=== PATIENT | male | born 1990 | race African-American/Black ===

== ENCOUNTER 2016-12-15 02:26 | Inpatient (IN) | payer SELFPAY ==
[2016-12-15 02:37] VITALS: BMI 28.8
[2016-12-15] MEDS ORDERED: NS 1000 ML 1,000 ML ONE ×2 (02:49→05:00)
--- NOTE | 2016-12-15 02:49 | DR.GENAD ---
HPI - HPI Comment HPI Comment: PATIENT WORKING ENVIROMENT HOT. TONIGHT, HE STARTED TO FEEL CRAMPS ALL OVER WITH HANDS AND FEET BRANDON AND SHOWING TETANI - Complaint/Symptoms Chief Complaint Doctors Comments: CRAMPS LEGS AND ARMS. Chief Complaint:: PT STATES THAT HE "GOT BAD CRAMPS IN BOTH ARMS AND COULDN'T MOVE HANDS" C/O CRAMPS IN LEGS AND PAIN IN ARMS AND LEGS - Nurses notes reviewed Nurses Notes Review: Yes - Source History Provided: Patient - Mode of Arrival Mode of Arrival: Ambulatory - Timing Onset of Chief Complaint: 12/15/16 Came on: Suddenly - Duration Duration: Constant Duration: Hours - Severity Severity: Severe PMH - PMH Past Medical History: No Past Medical History: Sleep Apnea Past Surgical History: Yes Surgical History: Ortho Surgery - Family History History of Family Medical Conditions: Yes Family Medical History: Cancer, Hypertension - Social History Alcohol Use: Rarely Do you use any recreational Drugs:: No - infectious screening Have you traveled outside the country in the last 6 months?: No ROS - Review of Systems Constitutional: Weakness, Fatigue. negative: Chills, Fever Eyes: No Symptoms Reported. negative: Eye Pain, Discharge ENTM: No Symptoms Reported. negative: Ear Discharge, Nose Discharge, Nose Congestion, Throat Pain Respiratoy: No Symptoms Reported, Short of Breath. negative: Non-Productive Cough, Wheezing, Hemoptysis Cardiovascular: Chest Pain. negative: Edema, Palpitations Gastrointestinal/Abdominal: Abdominal Pain, Nausea. negative: Diarrhea, Vomiting Genitourinary: No Symptoms Reported. negative: Dysuria, Frequency, Hematuria Neurological: Headache, Weakness, Dizziness Musculoskeletal: Joint Pain, Muscle Pain Integumentary: No Symptoms Reported, Dryness Hematologic/Lymphatic: No Symptoms Reported Endocrine: No Symptoms Reported All Other Systems: Reviewed and Negative PE - Vital Signs Vitals: Temperature 98.7 F Pulse Rate 86 Respiratory Rate 16 Blood Pressure 119/76 O2 Sat by Pulse Oximetry 98 - General Limitations: No Limitations General Appearance: Alert - Head Head Exam: Normal Inspection - Eyes Eye exam: Normal Appearance - ENT ENT Exam: Normal External Ear Exam External Ear Exam: Normal External Inspection TM/Canal Exam: Bilateral Normal Mouth Exam: Normal Inspection Throat Exam: Normal Inspection - Neck Neck Exam: Normal Inspection, Trachea Midline - Chest Chest Inspection: Symmetric Chest Wall Rise - Respiratory Respiratory Exam: Normal Lung Sounds Bilat Respiratory Exam: Bilateral Clear to Auscultation - Cardiovascular Cardiovascular Exam: Regular Rate, Normal Rhythm, Normal Heart Sounds - Abdominal Exam Abdominal Exam: Normal Bowel Sounds, Soft. negative: Tenderness - Extremities Extremities Exam: Normal Inspection - Back Back Exam: Normal Inspection - Neurologic Neurological Exam: Alert, Oriented X3 - Psychiatric Psychiatric Exam: Anxious - Skin Skin Exam: Normal Color MDM - Differential Diagnosis Differential Diagnosis: DEHYDRATION, HYPOKALEMIA, Course - Treatment Treatment: SEE ORDERS. - Consultation Consultation Comments: DISCUSS PATIENT WITH DR. NUGENT. HE WILL ADMIT PATIENT. - Education/Counseling Education/Counseling: Patient, Education Educated On: Treatment, Diagnosis, Needs for Follow Up ROR - Labs Reviewed Laboratory Results Reviewed?: Yes Result Diagrams: 12/15/16 02:56 12/15/16 02:56 Laboratory: WBC 9.1 X10^3/uL (3.6-10.0) 12/15/16 02:56 RBC 6.36 X10^6/uL (4.7-6.0) H 12/15/16 02:56 Hgb 20.1 g/dL (13.5-18.0) H* 12/15/16 02:56 Hct 57.8 % (42.0-54.0) H* 12/15/16 02:56 MCV 90.9 fL (80.0-100.0) 12/15/16 02:56 MCH 31.5 pg (27.0-34.0) 12/15/16 02:56 MCHC 34.7 g/dL (33.0-35.0) 12/15/16 02:56 RDW 13.9 % (11.6-16.5) 12/15/16 02:56 Plt Count 228 X10^3/uL (150.0-450.0) 12/15/16 02:56 MPV 8.3 fL (7.4-11.0) 12/15/16 02:56 Neut % 78.4 % (42.0-75.0) H 12/15/16 02:56 Lymph % 12.0 % (21.0-51.0) L 12/15/16 02:56 [place] % 8.8 % (0.0-13.0) 12/15/16 02:56 Eos % 0.2 % (0.9-2.9) L 12/15/16 02:56 Baso % 0.6 % (0.2-1.0) 12/15/16 02:56 Neut # 7.1 x10^3/uL (2.2-4.8) H 12/15/16 02:56 Lymph # 1.1 X10^3/uL (1.3-2.9) L 12/15/16 02:56 [place] # 0.8 x10^3/uL (0.3-0.8) 12/15/16 02:56 Eos # 0.0 x10^3/uL (0.0-0.2) 12/15/16 02:56 Baso # 0.1 X10^3/uL (0.0-0.1) 12/15/16 02:56 Absolute Nucleated RBC 0.0 /100WBC 12/15/16 02:56 Sodium 137 mmol/L (136-145) 12/15/16 02:56 Corrected Sodium 138 mmol/L (136-145) 12/15/16 02:56 Potassium 4.1 mmol/L (3.5-5.1) 12/15/16 02:56 Chloride 95 mmol/L (98-107) L 12/15/16 02:56 Carbon Dioxide 30.4 mmol/L (21-32) 12/15/16 02:56 BUN 20 mg/dL (7-18) H 12/15/16 02:56 Creatinine 3.45 mg/dL (0.70-1.30) H 12/15/16 02:56 Est GFR (MDRD) Af Amer 28 (>60) L 12/15/16 02:56 Est GFR (MDRD) Non-Af 23 (>60) L 12/15/16 02:56 Glucose 136 mg/dL (65-99) H 12/15/16 02:56 Calcium 10.5 mg/dL (8.5-10.1) H 12/15/16 02:56 Corrected Calcium TNP 12/15/16 02:56 Total Bilirubin 0.70 mg/dL (0.2-1.0) 12/15/16 02:56 AST 31 Units/L (15-37) 12/15/16 02:56 ALT 76 Units/L (12-78) 12/15/16 02:56 Alkaline Phosphatase 108 Units/L (46-116) 12/15/16 02:56 Creatine Kinase 237 Units/L (39-308) 12/15/16 02:56 Total Protein 10.3 g/dL (6.4-8.2) H 12/15/16 02:56 Albumin 5.6 g/dL (3.4-5.0) H 12/15/16 02:56 Globulin 4.7 g/dL (2.5-4.5) H 12/15/16 02:56 Albumin/Globulin Ratio 1.2 Ratio (1.1-2.1) 12/15/16 02:56 - Diagnosis Discharge Problem: Renal insufficiency, Dehydration, Myalgia, Generalized pain, Polycythemia - Discharge Plan Disposition: ADMITTED INPATIENT Condition: Stable - Follow ups/Referrals Follow ups/Referrals: NFD,None [Primary Care Provider] - 3 days - Instructions
[2016-12-15] MEDS ORDERED: TORADOL 30 MG VIAL IVP ONE (02:50)
[2016-12-15] MEDS ORDERED: NS 1000 ML 1,000 ML IV ONE ×2 (02:50→05:00)
[2016-12-15] MEDS ORDERED: ATIVAN INJ 2 MG VIAL IVP ONE (02:52)
[2016-12-15] MEDS ORDERED: ATIVAN INJ 2 MG VIAL ONE (03:01)
[2016-12-15] MEDS ORDERED: TORADOL 30 MG VIAL ONE (03:01)
[2016-12-15 03:08] LABS: BASOPHILS # (AUTO) 0.1 X10^3/uL (0.0-0.1); BASOPHILS % (AUTO) 0.6 % (0.2-1.0); EOSINOPHILS % (AUTO) 0.2 % (0.9-2.9); LYMPHOCYTES # (AUTO) 1.1 X10^3/uL (1.3-2.9); MEAN CORPUSCULAR HEMOGLOBIN 31.5 pg (27.0-34.0); MEAN CORPUSCULAR HGB CONC 34.7 g/dL (33.0-35.0); MEAN CORPUSCULAR VOLUME 90.9 fL (80.0-100.0); MEAN PLATELET VOLUME 8.3 fL (7.4-11.0); MONOCYTES # (AUTO) 0.8 x10^3/uL (0.3-0.8); MONOCYTES % (AUTO) 8.8 % (0.0-13.0); NEUTROPHILS # (AUTO) 7.1 x10^3/uL (2.2-4.8); NEUTROPHILS % (AUTO) 78.4 % (42.0-75.0); PLATELET COUNT 228 X10^3/uL (150.0-450.0); RED BLOOD COUNT 6.36 X10^6/uL (4.7-6.0); RED CELL DISTRIBUTION WIDTH 13.9 % (11.6-16.5); WHITE BLOOD COUNT 9.1 X10^3/uL (3.6-10.0)
[2016-12-15 03:12] LABS: HEMATOCRIT 57.8 % (42.0-54.0)
[2016-12-15 03:13] LABS: HEMOGLOBIN 20.1 g/dL (13.5-18.0)
[2016-12-15 03:17] LABS: ALANINE AMINOTRANSFERASE 76 Units/L (12-78); ALBUMIN 5.6 g/dL (3.4-5.0); ALKALINE PHOSPHATASE 108 Units/L (46-116); ASPARTATE AMINO TRANSFERASE 31 Units/L (15-37); BLOOD UREA NITROGEN 20 mg/dL (7-18); CALCIUM 10.5 mg/dL (8.5-10.1); CARBON DIOXIDE 30.4 mmol/L (21-32); CHLORIDE 95 mmol/L (98-107); COR NA(FOR HYPERGLY) 138 mmol/L (136-145); CREATINE KINASE 237 Units/L (39-308); CREATININE 3.45 mg/dL (0.70-1.30); SODIUM 137 mmol/L (136-145); TOTAL PROTEIN 10.3 g/dL (6.4-8.2); eGFR BLACK RACES 28 (>60); eGFR NON BLACK RACES 23 (>60)
[2016-12-15] MEDS ORDERED: MORPHINE SULFATE INJ 4 MG IVP PRN (06:41)
[2016-12-15] MEDS ORDERED: ZOFRAN INJ 4 MG VIAL IVP PRN (06:41)
[2016-12-15] MEDS ORDERED: ATIVAN INJ 2 MG VIAL IVP PRN (06:42)
[2016-12-15 07:04] LABS: BILIRUBIN,URINE 1+ (NEGATIVE); BLOOD/HEMOGLOBIN,URINE 3+ (NEGATIVE); GLUCOSE, URINE NEGATIVE (NEGATIVE); KETONES,URINE 1+ (NEGATIVE); LEUKOCYTE ESTERASE ,URINE 1+ (NEGATIVE); NITRITES,URINE NEGATIVE (NEGATIVE); PROTEIN,URINE 3+ (NEGATIVE); UROBILINOGEN,URINE 2+ (NORMAL)
[2016-12-15 07:15] LABS: APPEARANCE,URINE HAZY (CLEAR); BACTERIA,URINE TRACE /HPF (NEGATIVE); COLOR,URINE AMBER (YELLOW); HYALINE CASTS, URINE NUMEROUS /LPF (NEGATIVE); RBC,URINE 15-20 /HPF (NEGATIVE); SQUAMOUS EPITHELIAL CELL,UR RARE /HPF (NEGATIVE)
[2016-12-15] MEDS: NS 1000 ML 1,000 ML IV SCH ×3 (07:27→23:19)
[2016-12-15] MEDS: NICODERM PATCH 21 MG/24 HR TD SCH ×2 (10:29→10:31)
--- NOTE | 2016-12-15 11:15 | DR.H&P ---
H&P - History & Physical for Day of: H&P Date: 12/15/16 - Chief Complaint Chief Complaint: CRAMPS IN LEGS AND ARMS - Allergies Allergies/Adverse Reactions: Allergies Allergy/AdvReac Type Severity Reaction Status Date / Time No Known Drug Allergies Allergy Verified 12/15/16 07:30 - History of Present Illness History of Present Illness: IS A 26 YEAR OLD WHO PRESENTED TO THE EMERGENCY ROOM WITH COMPLAITNS OF CRAMPS IN BOTH ARMS AND LEGS. HE REPORTED THAT HE WAS WORKING IN A HOT ENVIRONMENT WHEN HE BEGAN FEELING CRAMPS ALL OVER WITH HANDS AND FEET BRANDON AND SHOWING TETANY. ASSOCIATED SYMPTOMS INCLUDE WEAKNESS, FATIGUE, HEADACHE, CHEST PAIN, ABDOMINAL CRAMPING, AND NAUSEA. ON ARRIVAL TO ER, VITALS WERE 98.7-86-16-98%-119/76. LABS WERE OBTAINED. ABNORMAL VALUES INCLUDE THE FOLLOWING: RBC 6.36, HGB 20.1, HCT 57.8, CHLORIDE 95, BUN 20 , CREATININE 3.45, GLUCOSE 136, CALCIUM 10.5, TOTAL PROTEIN 10.3, ALBUMIN 5.6, GLOBULIN 4.7. URINALYSIS REPORTED 15-20 RBC, LEUKOCYTES 1+, OCCULT BLOOD 3+, PROTEIN 3+. WE ADMITTED PATIENT FOR FURTHER TREATMENT AND EVALUATION. HE WAS STARTED ON NORMAL SALINE AT 150MG/HR, MORPHINE 4MG IV Q4H PRN, ATIVAN 1MG IVP PRN, AND ZOFRAN 4MG IVP Q6H PRN. WE PLAN TO RECHECK AM LABS AND CONTINUE TO MONITOR PATIENT. - Past Medical History Past Medical History: Sleep Apnea - Past Surgical History Surgical History: Ortho Surgery - Family History Family Medical History: Cancer, Hypertension - Social History Does patient currently use any type of tobacco product: Yes Have you used tobacco products in the last 12 months: Yes Type of Tobacco Use: Cigarettes Alcohol Use: Rarely Drug Use: None - Medications Home Medications: NK [NK] 12/15/16 [History Confirmed 12/15/16] - Review of Systems Constitutional: Weakness Eyes: No Symptoms Reported ENT: No Symptoms Reported Respiratory: No Symptoms Reported Cardiovascular: Chest Pain, Light Headedness Gastrointestinal: Nausea, Abdominal Pain Musculoskeletal: See HPI Skin: No Symptoms Reported Neurological: Weakness - Physical Exam Vital Signs: Temperature 98.4 F Pulse Rate [Right Brachial] 84 Pulse Rate 86 Respiratory Rate 20 Blood Pressure [Right Arm] 144/73 Blood Pressure 119/76 O2 Sat by Pulse Oximetry 98 Oriented: Normal Eyes: Normal Ear: Normal Nose: Normal Throat: Normal Respiratory: Clear Throughout Cardiovascular: Normal : Normal Auscultation: Bowel Sounds: Normal Palpation: Normal Tenderness: Diffuse Skin: Normal Musculoskeletal: Normal Psychiatric: Normal Mood Description: Calm Affect: Normal Speech Pattern: Clear - Assessment/Plan (1) Dehydration Status: Acute Plan: CONTINUE IV FLUIDS (2) Generalized pain Status: Acute Plan: MORPHINE 4MG IVP Q4H PRN PAIN, CONTINUE TO MONITOR
[2016-12-16] MEDS: NS 1000 ML 1,000 ML IV SCH (05:57)
[2016-12-16 06:24] LABS: BASOPHILS # (AUTO) 0.1 X10^3/uL (0.0-0.1); BASOPHILS % (AUTO) 0.7 % (0.2-1.0); EOSINOPHILS # (AUTO) 0.1 x10^3/uL (0.0-0.2); EOSINOPHILS % (AUTO) 1.4 % (0.9-2.9); HEMATOCRIT 45.3 % (42.0-54.0); HEMOGLOBIN 15.4 g/dL (13.5-18.0); LYMPHOCYTES % (AUTO) 28.4 % (21.0-51.0); MEAN PLATELET VOLUME 8.6 fL (7.4-11.0); MONOCYTES # (AUTO) 0.8 x10^3/uL (0.3-0.8); MONOCYTES % (AUTO) 10.7 % (0.0-13.0); NEUTROPHILS # (AUTO) 4.1 x10^3/uL (2.2-4.8); NEUTROPHILS % (AUTO) 58.8 % (42.0-75.0); PLATELET COUNT 162 X10^3/uL (150.0-450.0); RED BLOOD COUNT 4.98 X10^6/uL (4.7-6.0); RED CELL DISTRIBUTION WIDTH 13.6 % (11.6-16.5)
[2016-12-16 06:43] LABS: ALANINE AMINOTRANSFERASE 58 Units/L (12-78); ALKALINE PHOSPHATASE 58 Units/L (46-116); ASPARTATE AMINO TRANSFERASE 58 Units/L (15-37); BLOOD UREA NITROGEN 18 mg/dL (7-18); CALCIUM 7.8 mg/dL (8.5-10.1); CARBON DIOXIDE 27.2 mmol/L (21-32); CHLORIDE 106 mmol/L (98-107); COR CA(FOR HYPOALB) 8.6 mg/dL (8.5-10.1); CREATININE 0.92 mg/dL (0.70-1.30); SODIUM 137 mmol/L (136-145); TOTAL PROTEIN 6.1 g/dL (6.4-8.2); eGFR BLACK RACES > 60 (>60); eGFR NON BLACK RACES > 60 (>60)
[2016-12-16 08:21] VITALS: BP 124/76
[2016-12-16] MEDS: NICODERM PATCH 21 MG/24 HR TD SCH (09:59)
[2016-12-17 10:32] LABS: CREATINE KINASE 1723 Units/L (39-308)
== END 2016-12-16 11:28 | disposition home or self-care (01) | DRG 700 ==
LOC: ER 02:26 → OBS 06:34 → MED/SURG 15:54
PROVIDERS: ADMIT Internal Medicine; ATTEND Internal Medicine
DX: N28.9 Disorder of kidney and ureter, unspecified (principal); E86.0 Dehydration; M79.1 Myalgia; R53.1 Weakness; D75.89 Other specified diseases of blood and blood-forming organs; R25.2 Cramp and spasm
CPT/HCPCS: 36415; 80053; 81001; 82550; 85025; 96365; 96367; 96374; 96375; 99284; A4222; J1885; J2060

== ENCOUNTER 2017-01-10 06:31 | Emergency (ER) | payer SELFPAY ==
[2017-01-10 06:41] VITALS: BMI 29.6
[2017-01-10] MEDS ORDERED: NS 1000 ML 1,000 ML ONE ×3 (06:57→10:50)
[2017-01-10] MEDS ORDERED: ZOFRAN INJ 4 MG VIAL ONE (06:58)
[2017-01-10] MEDS ORDERED: ZOFRAN INJ 4 MG VIAL IVP ONE (07:05)
[2017-01-10] MEDS ORDERED: NS 1000 ML 1,000 ML IV ONE ×3 (07:05→10:58)
[2017-01-10] MEDS ORDERED: PEPCID 20 MG IV PREMIX* 20 MG/50 ML BAG IV ONE ×2 (07:11→07:17)
--- NOTE | 2017-01-10 07:12 | DR.GENAD ---
HPI - PCP Primary Care Physician: nfd - HPI Comment HPI Comment: DIZZY AND HAVING ABD PAIN. SEEN IN ED FOR DEHYDRATION PREVIOUSLY. WORK IN AN ENVIROMENT WITH ELEVATED TEMP. NO FEVER. - Complaint/Symptoms Chief Complaint Doctors Comments: N/V AND MUSCLE CRAMPS TIMES FEW DAYS. WORSE TODAY. Chief Complaint:: PATIENT HAVING ABDOMINAL PAIN, VOMITTING CANT KEEP ANYTHING DOWN, LIGHT HEADED, CRAMPING EVERYEHERE, FEELS DEHYDRATED.GETS HOT AND COLD. Self Treatment fo Chief Complaint: NAUSEA PILL AROUND 330AM - Nurses notes reviewed Nurses Notes Review: Yes - Source History Provided: Patient - Mode of Arrival Mode of Arrival: Ambulatory - Timing Onset of Chief Complaint: 01/09/17 Came on: Suddenly - Duration Duration: Constant Duration: Days - Severity Severity: Moderate <PAUL KHOURY - Last Filed: 01/10/17 08:12> PMH - PMH Past Medical History: Yes Past Medical History: Sleep Apnea Past Surgical History: Yes Surgical History: Ortho Surgery - Family History History of Family Medical Conditions: Yes Family Medical History: Cancer, Hypertension - Social History Does patient currently use any type of tobacco product: Yes Have you used tobacco products in the last 12 months: Yes Type of Tobacco Use: Cigarettes How many years tobacco product used: 2 Does any household member use tobacco: No Alcohol Use: Rarely Do you use any recreational Drugs:: No Lives With: Significant Other - infectious screening In the last 2 months have you had wt loss of >10#?: NO Have you had fever, night sweats or hemotysis?: No Have you traveled outside the country in the last 6 months?: No Isolation: Standard <PAUL KHOURY - Last Filed: 01/10/17 08:12> ROS - Review of Systems Constitutional: No Symptoms Reported Eyes: No Symptoms Reported ENTM: No Symptoms Reported Respiratoy: No Symptoms Reported Cardiovascular: No Symptoms Reported Gastrointestinal/Abdominal: Abdominal Pain, Nausea, Vomiting Genitourinary: No Symptoms Reported Neurological: No Symptoms Reported Musculoskeletal: Muscle Pain Integumentary: No Symptoms Reported Hematologic/Lymphatic: No Symptoms Reported Endocrine: No Symptoms Reported All Other Systems: Reviewed and Negative <PAUL KHOURY - Last Filed: 01/10/17 08:12> PE - General Limitations: No Limitations General Appearance: Alert - Head Head Exam: Normal Inspection - Eyes Eye exam: Normal Appearance - ENT ENT Exam: Normal External Ear Exam External Ear Exam: Normal External Inspection TM/Canal Exam: Bilateral Normal Nose Exam: Normal Nose Exam Mouth Exam: Normal Inspection Throat Exam: Normal Inspection - Neck Neck Exam: Trachea Midline - Chest Chest Inspection: Symmetric Chest Wall Rise - Respiratory Respiratory Exam: Normal Lung Sounds Bilat Respiratory Exam: Bilateral Clear to Auscultation - Cardiovascular Cardiovascular Exam: Regular Rate, Normal Rhythm, Normal Heart Sounds - Abdominal Exam Abdominal Exam: Normal Bowel Sounds, Soft. negative: Tenderness - Extremities Extremities Exam: Normal Inspection - Back Back Exam: Normal Inspection - Neurologic Neurological Exam: Alert, Oriented X3 - Psychiatric Psychiatric Exam: Normal Affect, Normal Mood - Skin Skin Exam: Normal Color <PAUL KHOURY - Last Filed: 01/10/17 08:12> - Vital Signs Vitals: Temperature 97.1 F Pulse Rate [Right Brachial] 67 Pulse Rate 80 Respiratory Rate 18 Blood Pressure [Right Arm] 122/73 Blood Pressure 104/64 O2 Sat by Pulse Oximetry 100 MDM - Differential Diagnosis Differential Diagnosis: ABDOMINAL PAIN, GASTRITIS, DEHYDRATION, BOWEL OBST, HEAT RELATED ILLNESS <PAUL KHOURY - Last Filed: 01/10/17 08:12> Course - Treatment Treatment: SEE ORDERS. - Education/Counseling Education/Counseling: Patient, Education Educated On: Treatment, Diagnosis, Needs for Follow Up <PAUL KHOURY - Last Filed: 01/10/17 08:12> - Reevaluation 1st: Improved (Creatinine decreased to 2.52 GFR increased to 40) <BRENNAN MARTINES - Last Filed: 01/10/17 12:32> ROR - Labs Reviewed Laboratory Results Reviewed?: Yes Result Diagrams: 01/10/17 07:24 01/10/17 07:24 - XRAY XRAY Findings: REPORT NOTED <PAUL KHOURY - Last Filed: 01/10/17 08:12> - Labs Reviewed Result Diagrams: 01/10/17 07:24 01/10/17 10:54 <BRENNAN MARTINES - Last Filed: 01/10/17 12:32> - Labs Reviewed Laboratory: WBC 13.6 X10^3/uL (3.6-10.0) H 01/10/17 07:24 RBC 6.21 X10^6/uL (4.7-6.0) H 01/10/17 07:24 Hgb 19.7 g/dL (13.5-18.0) H* 01/10/17 07:24 Hct 56.6 % (42.0-54.0) H* 01/10/17 07:24 MCV 91.1 fL (80.0-100.0) 01/10/17 07:24 MCH 31.8 pg (27.0-34.0) 01/10/17 07:24 MCHC 34.9 g/dL (33.0-35.0) 01/10/17 07:24 RDW 13.5 % (11.6-16.5) 01/10/17 07:24 Plt Count 239 X10^3/uL (150.0-450.0) 01/10/17 07:24 MPV 8.0 fL (7.4-11.0) 01/10/17 07:24 Neut % 89.9 % (42.0-75.0) H 01/10/17 07:24 Lymph % 4.9 % (21.0-51.0) L 01/10/17 07:24 [place] % 4.7 % (0.0-13.0) 01/10/17 07:24 Eos % 0.2 % (0.9-2.9) L 01/10/17 07:24 Baso % 0.3 % (0.2-1.0) 01/10/17 07:24 Neut # 12.2 x10^3/uL (2.2-4.8) H 01/10/17 07:24 Lymph # 0.7 X10^3/uL (1.3-2.9) L 01/10/17 07:24 [place] # 0.6 x10^3/uL (0.3-0.8) 01/10/17 07:24 Eos # 0.0 x10^3/uL (0.0-0.2) 01/10/17 07:24 Baso # 0.0 X10^3/uL (0.0-0.1) 01/10/17 07:24 Absolute Nucleated RBC 0.1 /100WBC 01/10/17 07:24 Sodium 139 mmol/L (136-145) 01/10/17 10:54 Corrected Sodium TNP 01/10/17 10:54 Potassium 4.6 mmol/L (3.5-5.1) 01/10/17 10:54 Chloride 100 mmol/L (98-107) 01/10/17 10:54 Carbon Dioxide 28.5 mmol/L (21-32) 01/10/17 10:54 BUN 26 mg/dL (7-18) H 01/10/17 10:54 Creatinine 2.52 mg/dL (0.70-1.30) H 01/10/17 10:54 Est GFR (MDRD) Af Amer 40 (>60) L 01/10/17 10:54 Est GFR (MDRD) Non-Af 33 (>60) L 01/10/17 10:54 Glucose 106 mg/dL (65-99) H 01/10/17 10:54 Calcium 9.1 mg/dL (8.5-10.1) 01/10/17 10:54 Corrected Calcium TNP 01/10/17 07:24 Total Bilirubin 0.70 mg/dL (0.2-1.0) 01/10/17 07:24 AST 26 Units/L (15-37) 01/10/17 07:24 ALT 72 Units/L (12-78) 01/10/17 07:24 Alkaline Phosphatase 112 Units/L (46-116) 01/10/17 07:24 Creatine Kinase 234 Units/L (39-308) 01/10/17 07:24 CK-MB (CK-2) 1.0 ng/mL (0-4.0) 01/10/17 07:24 CK/CKMB % Calc 0.4 % (<4) 01/10/17 07:24 Troponin I < 0.02 ng/mL (0-1.5) 01/10/17 07:24 Total Protein 10.3 g/dL (6.4-8.2) H 01/10/17 07:24 Albumin 5.5 g/dL (3.4-5.0) H 01/10/17 07:24 Globulin 4.8 g/dL (2.5-4.5) H 01/10/17 07:24 Albumin/Globulin Ratio 1.1 Ratio (1.1-2.1) 01/10/17 07:24 Amylase 119 Units/L (25-115) H 01/10/17 07:24 Lipase 128 Units/L (73-393) 01/10/17 07:24 Specimen Type Clean catch urine 01/10/17 10:04 Urine Color Dark yellow (YELLOW) 01/10/17 10:04 Urine Appearance Cloudy (CLEAR) 01/10/17 10:04 Urine pH 5.0 (5.0 - 8.0) 01/10/17 10:04 Ur Specific [place] 1.025 (1.000-1.030) 01/10/17 10:04 Urine Protein 3+ (NEGATIVE) 01/10/17 10:04 Urine Glucose (UA) Negative (NEGATIVE) 01/10/17 10:04 Urine Ketones Negative (NEGATIVE) 01/10/17 10:04 Urine Occult Blood 3+ (NEGATIVE) 01/10/17 10:04 Urine Nitrite Negative (NEGATIVE) 01/10/17 10:04 Urine Bilirubin 1+ (NEGATIVE) 01/10/17 10:04 Urine Urobilinogen 1+ (NORMAL) 01/10/17 10:04 Ur Leukocyte Esterase 1+ (NEGATIVE) 01/10/17 10:04 Urine RBC 15-20 /HPF (NEGATIVE) 01/10/17 10:04 Urine WBC 4-8 /HPF (NEGATIVE) 01/10/17 10:04 Ur Squamous Epith Cells Few /HPF (NEGATIVE) 01/10/17 10:04 Urine Bacteria Trace /HPF (NEGATIVE) 01/10/17 10:04 Hyaline Casts Numerous /LPF (NEGATIVE) 01/10/17 10:04 Urine Mucus Moderate /HPF (NEGATIVE) 01/10/17 10:04 Ur Culture Indicated? No/not indicated 01/10/17 10:04 <PAUL KHOURY - Last Filed: 01/10/17 08:12> <BRENNAN MARTINES - Last Filed: 01/10/17 12:32> - Diagnosis Discharge Problem: Dehydration, History of decreased renal function - Discharge Plan Condition: Stable - Follow ups/Referrals Follow ups/Referrals: NFD,None [Primary Care Provider] - 3 days - Instructions
[2017-01-10 07:37] LABS: BASOPHILS % (AUTO) 0.3 % (0.2-1.0); EOSINOPHILS % (AUTO) 0.2 % (0.9-2.9); LYMPHOCYTES # (AUTO) 0.7 X10^3/uL (1.3-2.9); LYMPHOCYTES % (AUTO) 4.9 % (21.0-51.0); MEAN CORPUSCULAR HEMOGLOBIN 31.8 pg (27.0-34.0); MEAN CORPUSCULAR HGB CONC 34.9 g/dL (33.0-35.0); MEAN CORPUSCULAR VOLUME 91.1 fL (80.0-100.0); MONOCYTES # (AUTO) 0.6 x10^3/uL (0.3-0.8); MONOCYTES % (AUTO) 4.7 % (0.0-13.0); NEUTROPHILS # (AUTO) 12.2 x10^3/uL (2.2-4.8); NEUTROPHILS % (AUTO) 89.9 % (42.0-75.0); PLATELET COUNT 239 X10^3/uL (150.0-450.0); RED BLOOD COUNT 6.21 X10^6/uL (4.7-6.0); RED CELL DISTRIBUTION WIDTH 13.5 % (11.6-16.5); WHITE BLOOD COUNT 13.6 X10^3/uL (3.6-10.0)
[2017-01-10 07:40] LABS: HEMOGLOBIN 19.7 g/dL (13.5-18.0)
[2017-01-10 07:41] LABS: HEMATOCRIT 56.6 % (42.0-54.0)
[2017-01-10 07:43] LABS: ALANINE AMINOTRANSFERASE 72 Units/L (12-78); ALBUMIN 5.5 g/dL (3.4-5.0); ALKALINE PHOSPHATASE 112 Units/L (46-116); AMYLASE 119 Units/L (25-115); ASPARTATE AMINO TRANSFERASE 26 Units/L (15-37); BLOOD UREA NITROGEN 26 mg/dL (7-18); CALCIUM 10.8 mg/dL (8.5-10.1); CARBON DIOXIDE 26.9 mmol/L (21-32); CHLORIDE 94 mmol/L (98-107); COR NA(FOR HYPERGLY) 138 mmol/L (136-145); CREATININE 3.75 mg/dL (0.70-1.30); LIPASE 128 Units/L (73-393); SODIUM 137 mmol/L (136-145); TOTAL PROTEIN 10.3 g/dL (6.4-8.2); eGFR BLACK RACES 25 (>60); eGFR NON BLACK RACES 21 (>60)
--- NOTE | 2017-01-10 07:55 | RAD ---
HISTORY: Muscle cramps, vomiting Study: Acute abdominal series Comparison: Chest x-ray done 09/25/2013 Technique: KUB and upright views of the abdomen are provided as well as a PA chest. Findings: The bowel gas pattern is nonspecific. No evidence of bowel obstruction or perforation is seen. There is no evidence of free intraperitoneal air or fluid. No opaque stone is seen. Osseous structures are intact Trachea, mediastinum and diaphragm is within normal limits. Heart size is normal. Lungs and pleural s paces are clear. Osseous structures are intact. IMPRESSION: Unremarkable single-view chest. Normal abdomen series. Reported By:
[2017-01-10 08:37] LABS: CKMB % 0.4 % (<4); CREATINE KINASE 234 Units/L (39-308); TROPONIN I < 0.02 ng/mL (0-1.5)
[2017-01-10 09:13] VITALS: BP 122/73
[2017-01-10 10:21] LABS: BILIRUBIN,URINE 1+ (NEGATIVE); BLOOD/HEMOGLOBIN,URINE 3+ (NEGATIVE); GLUCOSE, URINE NEGATIVE (NEGATIVE); KETONES,URINE NEGATIVE (NEGATIVE); LEUKOCYTE ESTERASE ,URINE 1+ (NEGATIVE); NITRITES,URINE NEGATIVE (NEGATIVE); PROTEIN,URINE 3+ (NEGATIVE); UROBILINOGEN,URINE 1+ (NORMAL)
[2017-01-10 10:31] LABS: APPEARANCE,URINE CLOUDY (CLEAR); COLOR,URINE DARK YELLOW (YELLOW)
[2017-01-10 10:32] LABS: BACTERIA,URINE TRACE /HPF (NEGATIVE); HYALINE CASTS, URINE NUMEROUS /LPF (NEGATIVE); MUCUS,URINE MODERATE /HPF (NEGATIVE); RBC,URINE 15-20 /HPF (NEGATIVE); SQUAMOUS EPITHELIAL CELL,UR FEW /HPF (NEGATIVE)
[2017-01-10 11:07] LABS: BLOOD UREA NITROGEN 26 mg/dL (7-18); CALCIUM 9.1 mg/dL (8.5-10.1); CARBON DIOXIDE 28.5 mmol/L (21-32); CHLORIDE 100 mmol/L (98-107); CREATININE 2.52 mg/dL (0.70-1.30); SODIUM 139 mmol/L (136-145); eGFR BLACK RACES 40 (>60); eGFR NON BLACK RACES 33 (>60)
== END 2017-01-10 12:37 | disposition home or self-care (01) ==
LOC: ER 06:31
DX: E86.0 Dehydration (principal); R94.4 Abnormal results of kidney function studies
CPT/HCPCS: 36415; 74022; 80048; 80053; 81001; 82150; 82550; 82553; 83690; 84484; 85025; 96365; 99283; A4222; S0028; J2405

== ENCOUNTER 2017-08-09 18:16 | Emergency (ER) | payer OTHER ==
[2017-08-09 18:19] VITALS: BP 124/69; BMI 29.6
[2017-08-09] MEDS ORDERED: NORFLEX INJ IM ONE (19:30)
[2017-08-09] MEDS ORDERED: TORADOL 60 MG VIAL IM ONE (19:30)
--- NOTE | 2017-08-09 19:30 | DR.MBACK ---
HPI - Time Seen Time seen: 19:30 - PCP Primary Care Physician: HARINI - HPI Comment HPI Comment: WORSE SINCE YESTERDAY. NO TRAUMA. LIFT AT WORK. NO DYSURIA. - Complaint Chief Complaint Doctors Comments: LOWER BACK PAIN TIMES TIMES FEW DAYS. Chief Complaint:: PT C/O LOWER BACK PAIN. PT STATES HIS BACK HAS BEEN HURTING ON AND OFF FOR A FEW DAYS, BUT WHEN HE GOT UP TODAY HIS BACK WAS HURTING HIM SO BAD - Reviewed Nurses Notes Review: Yes - Source History Provided: Patient - Mode of Arrival Mode of Arrival: Ambulatory - Timing Onset of Chief Complaint: 08/09/17 - Duration Duration: Constant - Location Back Pain Location: Lower, BACK, Lumbar Radiation To: Left, Thigh - Severity Severity: Moderate - Quality Quality: Aching, Sharp - Context Onset: Spontaneous History of: None - Associated Signs and Symptoms Numbness: None Weakness: None PMH - PMH Past Medical History: Yes Past Medical History: Sleep Apnea Past Surgical History: Yes Surgical History: Ortho Surgery - Family History History of Family Medical Conditions: Yes Family Medical History: Cancer, Hypertension - Social History Does patient currently use any type of tobacco product: Yes Have you used tobacco products in the last 12 months: Yes Type of Tobacco Use: Cigarettes Does any household member use tobacco: No Alcohol Use: Rarely Do you use any recreational Drugs:: No Lives With: Family Lives Where: Home - infectious screening In the last 2 months have you had wt loss of >10#?: NO Have you had fever, night sweats or hemotysis?: No Have you traveled outside the country in the last 6 months?: No Isolation: Standard ROS - Review of Systems Constitutional: No Symptoms Reported Eyes: No Symptoms Reported ENTM: No Symptoms Reported Respiratoy: No Symptoms Reported Cardiovascular: No Symptoms Reported Gastrointestinal/Abdominal: No Symptoms Reported Genitourinary: No Symptoms Reported Neurological: No Symptoms Reported Musculoskeletal: Back Pain, Muscle Pain, Back Integumentary: No Symptoms Reported Hematologic/Lymphatic: No Symptoms Reported Endocrine: No Symptoms Reported All Other Systems: Reviewed and Negative PE - Vital Signs Vitals: Temperature 98.6 F Pulse Rate 75 Respiratory Rate 20 Blood Pressure [Right Arm] 122/73 Blood Pressure 124/69 O2 Sat by Pulse Oximetry 97 - General Limitations: No Limitations General Appearance: Alert - Head Head Exam: Normal Inspection - Eyes Eye exam: Normal Appearance - ENT ENT Exam: Normal External Ear Exam - Chest Chest Inspection: Symmetric Chest Wall Rise - Respiratory Respiratory Exam: Normal Lung Sounds Bilat Respiratory Exam: Bilateral Clear to Auscultation - Cardiovascular Cardiovascular Exam: Regular Rate, Normal Rhythm, Normal Heart Sounds - Abdominal Exam Abdominal Exam: Normal Bowel Sounds, Soft. negative: Tenderness - Rectal Rectal Exam: Deferred - Genitourinary Exam: Male: Deferred - Extremities Extremities Exam: Tenderness (LT HIP) - Back Back Exam: Tenderness (LOWER SPINE TENDERNESS.), Paraspinal Tenderness - Neurological Neurological Exam: Alert, Oriented X3 - Psychiatric Psychiatric Exam: Normal Affect, Normal Mood - Skin Skin Exam: Normal Color MDM - Additional Information Additional Information Obtained From: Family - Differential Diagnosis Differential Diagnosis: DJD, Fracture, Musculoskeletal Pain, Strain Course - Treatment Treatment: SEE ORDERS. - Education/Counseling Education/Counseling: Patient, Family, Education Educated On: Treatment, Diagnosis, Needs for Follow Up ROR - XRAY XRAY Interpreted by: Radiologist XRAY Findings: REPORT DISCUSS WITH PATIENT. - Diagnosis Discharge Problem: Back pain Qualifiers: Back pain location: low back pain Chronicity: acute Back pain laterality: bilateral Sciatica presence: with sciatica Sciatica laterality: sciatica of left side Qualified Code(s): M54.42 - Lumbago with sciatica, left side Lumbosacral strain Qualifiers: Encounter type: initial encounter Qualified Code(s): S39.012A - Strain of muscle, fascia and tendon of lower back, initial encounter - Discharge Plan Disposition: 01 HOME, SELF-CARE Condition: Stable Prescriptions: Cyclobenzaprine HCl [FLEXERIL 10 MG *] 10 mg PO TID #20 tab Ibuprofen [MOTRIN TAB 800 MG *] 800 mg PO Q8H PRN #30 tab PRN Reason: Pain/Inflammation - Follow ups/Referrals Follow ups/Referrals: NFD,None [Primary Care Provider] - 3 days - Instructions Instructions: Musculoskeletal Pain, Lumbosacral Strain Additional Instructions: RETURN TO ED IF WORSE.
[2017-08-09] MEDS ORDERED: NORFLEX INJ ONE (19:41)
[2017-08-09] MEDS ORDERED: TORADOL 60 MG VIAL ONE (19:41)
--- NOTE | 2017-08-09 19:53 | RAD ---
HISTORY: Back Pain Study: 3 views of the lumbar spine Comparison: None. Findings: Normal alignment without subluxation or listhesis. Disk heights are maintained. Vertebral body heigh ts are normal. Sacroiliac joints are unremarkable. No evidence for acute fracture can be identified. IMPRESSION: 1. No acute abnormality of the lumbar spine. Reported By:
[2017-08-09] MEDS ORDERED: TYLENOL #3 TAB (W/CODEINE) PO ONE ×2 (20:44→20:45)
== END 2017-08-09 20:49 | disposition home or self-care (01) ==
LOC: ER 18:24
DX: S39.012A Strain of muscle, fascia and tendon of lower back, initial encounter (principal); M54.42 Lumbago with sciatica, left side; X50.0XXA Overexertion from strenuous movement or load, initial encounter; Y92.69 Other specified industrial and construction area as the place of occurrence of the external cause
CPT/HCPCS: 72100; 96372; 99282; 99283; J1885; J2360